=== PATIENT | female | born 1950 | race Caucasian/White ===

== ENCOUNTER 2016-10-15 12:13 | Inpatient (IN) | payer MEDICARE, MEDICAID, OTHER ==
[2016-10-15] VITALS (26 sets, daily range): BP systolic 83–168; BP diastolic 36–92; PULSE 50–82; RESP 18–43; TEMP 97.1–99.4; O2SAT 84–96
[~2016-10-15] VITALS: Ht 177.8 cm; Wt 135.6 kg
[~2016-10-15 12:13] MED LIST: ASPI81CH37 CHEW; CLIN1CAP5 PO; FURO20TA PO; LISI2.5T3 PO; METF1000 PO; TRAM50TA PO
[2016-10-15] MEDS ORDERED: methylPREDNISolone SOD SUCC 125 MG/2 ML VIAL IVP ONE (12:45)
[2016-10-15] MEDS: RESP: ALBUTEROL 2.5 MG/IPRATROPIUM 0.5 MG NEB (SCH) INH ×3 (12:45→22:34)
[2016-10-15] MEDS ORDERED: SODIUM CHLORIDE 0.9% FLUSH 5 ML FLUSH IVF PRN (12:45)
--- NOTE | 2016-10-15 12:47 | PD ---
HPI Chief Complaint: Respiratory Distress Time Seen by Provider: 12:33 Travel History International Travel<30 days: No Contact w/Intl Traveler<30days: No Traveled to known affect area: No History of Present Illness HPI The patient was seen and examined in the presence of the nurse. She complains of shortness of breath. Symptoms are severe. She is chronically short of breath with COPD and CHF with this is worse than usual. Duration worsening is 2 days. She unfortunately continues to smoke despite being oxygen dependent at 3 L around the clock. She doesn't have a concentrator for portable oxygen and so when she leaves the house she does not wear the oxygen and arrived to the emergency room without it. Saturation was 84% on room air. I have her now on 6 L nasal cannula. Not having chest pain or presyncopal symptoms. She does have a chronic cough. No fever. Leg edema is better than usual for her. Symptoms have no alleviating factors. PFSH Past Medical History Arthritis: Yes (in back) Asthma: No Autoimmune Disease: No Anxiety: Yes Depression: Yes Heart Rhythm Problems: Yes (chf, copd) Cancer: No Cardiovascular Problems: Yes High Cholesterol: No Congestive Heart Failure: Yes COPD: Yes Cerebrovascular Accident: No Diabetes: Yes Patient Takes Glucophage: Yes Diminished Hearing: Yes (deaf in right ear) GERD: Yes (once in a while) Genitourinary: No Headaches: Yes Hiatal Hernia: No Hypertension: Yes Immune Disorder: No Kidney Stones: No Musculoskeletal: Yes Neurologic: Yes Psychiatric: Yes Reproductive: No Respiratory: Yes Migraines: Yes Renal Failure: No Seizures: No Sickle Cell Disease: No Sleep Apnea: No Thyroid Disease: Yes Ulcer: No Tetanus Vaccination: < 5 Years ?: Not Menopausal: Yes Past Surgical History AICD: No Appendectomy: Yes Arteriovenous Shunt: No Cardiac Surgery: No Section: Yes Cholecystectomy: Yes Ear Surgery: No Endocrine Surgery: No Eye Surgery: No Genitourinary Surgery: No Hysterectomy: Yes Insulin Pump: No Joint Replacement: No Oral Surgery: No Pacemaker: No Thoracic Surgery: No Other Surgery: Yes Social History Alcohol Use: No Tobacco Use: Yes (09/29 PPD) Substance Use: No Allergies-Medications (Allergen,Severity, Reaction): Coded Allergies: Septra (Unverified Adverse Reaction, Severe, Yeast infection, 10/15/16) Tetracycline (Verified Adverse Reaction, Severe, Yeast infection, 10/15/16) Penicillin (Verified Adverse Reaction, Unknown, "DOESN'T WORK ON ME", 10/15) Reported Meds & Prescriptions Reported Meds & Active Scripts Active Tramadol (Tramadol HCl) 50 Mg Tab 50 Mg PO Q6H PRN Reported Aspirin Low Dose (Aspirin) 81 Mg Chew 81 Mg CHEW DAILY Lisinopril 2.5 Mg Tab Unknown Dose PO DAILY Metformin (Metformin HCl) 1,000 Mg Tab 500 PO BIDPC With meals Furosemide 20 Mg Tab Unknown Dose PO BID Review of Systems General / Constitutional: No: Fever Eyes: No: Visual changes HENT: No: Headaches Cardiovascular: Positive: Edema, No: Chest Pain or Discomfort Respiratory: Positive: Cough, Shortness of Breath, Wheezing Gastrointestinal: No: Abdominal Pain Genitourinary: No: Dysuria Musculoskeletal: Positive: Edema, No: Pain Skin: No Rash Neurologic: No: Weakness Psychiatric: No: Depression Endocrine: No: Polydipsia Hematologic/Lymphatic: No: Easy Bruising Physical Exam Narrative GENERAL: Well-nourished, well-developed patient who is short of breath in respiratory distress. SKIN: Warm and dry. HEAD: Atraumatic. Normocephalic. EYES: Pupils equal and round. No scleral icterus. No injection or drainage. ENT: No nasal bleeding or discharge. Mucous membranes pink and moist. NECK: Trachea midline. No JVD. CARDIOVASCULAR: Regular rate and rhythm. No murmur appreciated. RESPIRATORY: Positive accessory muscle use. Diffuse expiratory wheezing . Breath sounds equal bilaterally. GASTROINTESTINAL: Abdomen soft, non-tender, nondistended. Hepatic and splenic margins not palpable. MUSCULOSKELETAL: No obvious deformities. No clubbing. No cyanosis. Minor symmetric edema the feet and ankles. NEUROLOGICAL: Awake and alert. No obvious cranial nerve deficits. Motor grossly within normal limits. Normal speech. PSYCHIATRIC: Appropriate mood and affect; insight and judgment normal. Data Data Last Documented VS Vital Signs Date Time Temp Pulse Resp B/P Pulse Ox O2 Delivery O2 Flow Rate FiO2 10/15/16 13:23 82 18 140/52 91 Nasal Cannula 6 10/15/16 12:23 99.4 Orders Complete Blood Count With Diff (10/15/16 12:39) Basic Metabolic Panel (Bmp) (10/15/16 12:39) Iv Access Insert/Monitor (10/15/16 12:39) Ecg Monitoring (10/15/16 12:39) Oximetry (10/15/16 12:39) Oxygen Administration (10/15/16 12:39) Chest, Single Ap (10/15/16 12:39) Sodium Chloride 0.9% Flush (Ns Flush) (10/15/16 12:45) Methylprednisolone So Succ Inj (Solumedr (10/15/16 12:45) Albuterol-Ipratropium Neb (Duoneb Neb) (10/15/16 12:45) Furosemide Inj (Lasix Inj) (10/15/16 13:15) Admit Order (Ed Use Only) (10/15/16 13:53) Labs Laboratory Tests Test 10/15/16 12:40 White Blood Count 6.0 TH/MM3 Red Blood Count 4.66 MIL/MM3 Hemoglobin 13.2 GM/DL Hematocrit 39.1 % Mean Corpuscular Volume 83.9 FL Mean Corpuscular Hemoglobin 28.3 PG Mean Corpuscular Hemoglobin 33.7 % Concent Red Cell Distribution Width 13.0 % Platelet Count 185 TH/MM3 Mean Platelet Volume 9.4 FL Neutrophils (%) (Auto) 77.0 % Lymphocytes (%) (Auto) 11.6 % Monocytes (%) (Auto) 10.1 % Eosinophils (%) (Auto) 0.4 % Basophils (%) (Auto) 0.9 % Neutrophils # (Auto) 4.6 TH/MM3 Lymphocytes # (Auto) 0.7 TH/MM3 Monocytes # (Auto) 0.6 TH/MM3 Eosinophils # (Auto) 0.0 TH/MM3 Basophils # (Auto) 0.1 TH/MM3 CBC Comment DIFF FINAL Differential Comment Sodium Level 137 MEQ/L Potassium Level 3.6 MEQ/L Chloride Level 95 MEQ/L Carbon Dioxide Level 34.2 MEQ/L Anion Gap 8 MEQ/L Blood Urea Nitrogen 10 MG/DL Creatinine 0.92 MG/DL Estimat Glomerular Filtration 61 ML/MIN Rate Random Glucose 111 MG/DL Calcium Level 8.5 MG/DL MDM Medical Decision Making Medical Screen Exam Complete: Yes Emergency Medical Condition: Yes Medical Record Reviewed: Yes Differential Diagnosis Respiratory failure, COPD, pneumonia, CHF Narrative Course I have reviewed the patient's electronic medical record. Patient has been hospitalized for respiratory failure, both CHF and COPD Patient arrives critically ill and very dyspneic and laboring to breathe IV placed I gave her series of 3 nebulizer treatments and placed on 6 L nasal cannula oxygen I gave her IV Solu-Medrol CBC is normal Metabolic profile is normal other than mild elevation of bicarbonate, expected for this chronic COPD patient I reviewed her chest x-ray which shows findings of congestive failure and cardiomegaly I gave her 80 mg IV Lasix She is starting to diurese and feels improved at this point. No longer in critical status but still sick and requiring hospital stay. She is not stable for outpatient follow-up however. She will require telemetry hospitalization. I have placed a call to the hospitalist to discussed. I believe she can shortly wean down to her usual 3 L nasal cannula. Critical Care Narrative Aggregate critical care time was 35 minutes. Time to perform other separately billable procedures was not included in the critical care time. My time did not include minutes spent treating any other patients simultaneously or on activities that did not directly contribute to the patient's treatment. The services I provided to this patient were to treat and/or prevent clinically significant deterioration that could result in: Respiratory failure, cardiopulmonary arrest, heart arrhythmia I provided critical care services requiring my management, as noted below: Chart data review, documentation time, medication orders and management, vital sign assessments/reviewing monitor data, ordering and reviewing lab tests, ordering and interpreting/reviewing x-rays and diagnostic studies, care of the patient and discussion of the patient with the admitting physicians. Diagnosis Primary Impression: Congestive heart failure Qualified Code: I50.21 - Acute systolic congestive heart failure Additional Impression: Chronic obstructive pulmonary disease Qualified Code: J44.1 - Chronic obstructive pulmonary disease with acute exacerbation Admitting Information Admitting Physician Requests: Observation Hawk Henderson MD Oct 15, 2016 12:47
[2016-10-15 12:55] LABS: AUTOMATED NEUTROPHIL # 4.6 TH/MM3 (1.8-7.7); BASOPHIL # 0.1 TH/MM3 (0-0.2); BASOPHIL % 0.9 % (0.0-2.0); EOSINOPHIL % 0.4 % (0.0-4.0); HEMATOCRIT 39.1 % (35.0-46.0); LYMPH % 11.6 % (9.0-44.0); LYMPHOCYTE # 0.7 TH/MM3 (1.0-4.8); MEAN CELL VOLUME 83.9 FL (80.0-100.0); MEAN CORPUSCULAR HEMOGLOBIN 28.3 PG (27.0-34.0); MEAN CORPUSCULAR HGB CONC 33.7 % (32.0-36.0); MONO % 10.1 % (0.0-8.0); PLATELET COUNT 185 TH/MM3 (150-450); RED BLOOD COUNT 4.66 MIL/MM3 (4.00-5.30)
[2016-10-15 12:59] LABS: HEMO FLAGS DIFF FINAL
[2016-10-15] MEDS ORDERED: FUROSEMIDE 100 MG/10 ML VIAL IV PUSH ONE (13:15)
[2016-10-15 13:25] LABS: POTASSIUM 3.6 MEQ/L (3.5-5.1)
--- NOTE | 2016-10-15 13:25 | RADHPO ---
EXAM DATE/TIME: 10/15/2016 12:50 [facility] COMPARISON: No previous studies available for comparison. INDICATIONS : Short of breath MEDICAL HISTORY : Congestive heart failure. SURGICAL HISTORY : None. ENCOUNTER: Initial ACUITY: 2 days PAIN SCORE: 3/10 LOCATION: Bilateral chest FINDINGS: The cardiac silhouette is enlarged in transverse diameter. There is subsegmental atelectasis in the both bases. There are findings of congestive heart failure with interstitial and alveolar opacity zi aterally. No pleural effusions are identified. CONCLUSION: 1. Cardiomegaly and findings of congestive heart failure. Aidan Monzon MD on October 15, 2016 at 13:10 Board Certified Radiologist. This report was verified electronically.
[2016-10-15 13:29] LABS: BICARBONATE 34.2 MEQ/L (21.0-32.0)
[2016-10-15 14:43] LABS: BLOOD GAS BASE EXCESS 7.1 mmol/L (-2-2); BLOOD GAS CARBOXYHEMOGLOBIN 2.2 % (0-4); BLOOD GAS HCO3 31 mmol/L (22-26); BLOOD GAS METHEMOGLOBIN 1.2 % (0-2); BLOOD GAS O2 HGB SATURATION 84 % (90-100); BLOOD GAS OXYGEN CONTENT 15.5 Vol % (12.0-20.0); BLOOD GAS PCO2 43 mmHG (38-42); BLOOD GAS PO2 50 mmHG (61-120); BLOOD GAS TOTAL HGB 13.1 G/DL (12.0-16.0); TEMP CORR TO 98.6
[2016-10-15 14:53] LABS: CRITICAL VALUE YES
[2016-10-15 14:54] LABS: DRAW SITE RT RADIAL; FIO2 44 %; LITER FLOW 6 L/M; NUMBER OF ARTERIAL PUNCTURES 1; OXYGEN DEVICE NASAL CANNULA; STAT YES; ULNAR PULSE PRESENT
[2016-10-15] MEDS ORDERED: MAGNESIUM HYDROXIDE SUSP 30 ML CUP PO PRN (16:45)
[2016-10-15] MEDS ORDERED: ACETAMINOPHEN 325 MG TAB PO PRN (16:45)
[2016-10-15] MEDS ORDERED: NALOXONE HCL 0.4 MG/ML AMP IV PRN ×2 (16:45→19:00)
[2016-10-15] MEDS ORDERED: DEXTROSE 50% IN WATER 50 ML VIAL(D50) IV PUSH PRN (19:00)
[2016-10-15] MEDS ORDERED: GLUCAGON 1 MG/ML VIAL OTHER PRN (19:00)
[2016-10-15] MEDS ORDERED: CHLORHEXIDINE GLUCONATE 2 % 1 PACK (2 CLOTHS) TOP PRN (19:00)
[2016-10-15] MEDS ORDERED: LORazepam 1 MG TAB PO PRN (19:00)
[2016-10-15] MEDS ORDERED: AZITHROMYCIN 250 MG TAB PO SCH (19:00)
[2016-10-15] MEDS ORDERED: MISCELLANEOUS NURSING INFORMATION XX SCH (19:00)
--- NOTE | 2016-10-15 19:23 | HHI.HP ---
[facility] Service [facility] Primary Care Physician Serjio Larsen MD Admission Diagnosis acute exac of chronic CHF Diagnoses: Travel History International Travel<30 Days: No Contact w/Intl Traveler <30 Da: No Traveled to Known Affected Are: No History of Present Illness This is a pleasant 66-year-old female with past medical history of congestive heart failure, COPD on 3 L of oxygen continuously presents with a three-day history of increasing shortness of breath and tightness in the chest. The patient does endorse a chronic cough but states this has not changed. Denies fever or chills but states she did have sweats last night. The patient states that she has difficulty breathing more when she is lying flat and is alleviated by sitting up. She came into the ER today because the symptoms worsened. The patient does have congestive heart failure but denies any history of coronary artery disease. She last saw a assistant hall director more than 5 years ago area she does continue to smoke cigarettes. She denies increasing pedal edema. In the emergency room she was found to be hypoxic and was placed on 6 L nasal cannula. I ordered an ABG which showed hypoxia on this and she is now on a partial rebreather. The patient states that she feels somewhat better since coming into the hospital. She does not want a Justin catheter. She states she has claustrophobia and is hesitant to use BiPAP. Upon further discussion however she is agreeable. At this time she is a full code but she would of course prefer to avoid intubation. Patient was seen and examined presence of the ICU nurse as well as her daughter at bedside. Past Family Social History Allergies: Coded Allergies: Septra (Unverified Adverse Reaction, Severe, Yeast infection, 10/15/16) Tetracycline (Verified Adverse Reaction, Severe, Yeast infection, 10/15/16) Penicillin (Verified Adverse Reaction, Unknown, "DOESN'T WORK ON ME", 10/15) Physical Exam Vital Signs Vital Signs Date Time Temp Pulse Resp B/P Pulse Ox O2 Delivery O2 Flow Rate FiO2 10/15/16 18:10 93 Partial Rebreather 10.00 10/15/16 15:15 82 18 136/64 92 Non-Rebreather 10 10/15/16 13:23 82 18 140/52 91 Nasal Cannula 6 10/15/16 13:00 18 91 Nasal Cannula 6 10/15/16 13:00 91 Nasal Cannula 6 10/15/16 12:45 91 Nasal Cannula 6.00 10/15/16 12:37 22 90 Nasal Cannula 6 10/15/16 12:26 98 Non-Rebreather 12 10/15/16 12:23 99.4 76 20 145/74 84 Physical Exam GENERAL: Well-nourished, well-developed obese female patient. SKIN: Warm and dry. HEAD: Normocephalic. EYES: No scleral icterus. No injection or drainage. NECK: Supple, trachea midline. No JVD or lymphadenopathy. CARDIOVASCULAR: Regular rate and rhythm without murmurs, gallops, or rubs. RESPIRATORY: Breathing is moderately labored. Breath sounds diminished at the base and she has prolonged expiratory phase with scant end expiratory wheezing. No discernible crackles. GASTROINTESTINAL: Abdomen soft, non-tender, nondistended. EXTREMITIES: Trace pedal edema. NEUROLOGICAL: Awake, alert, and oriented x 3. Non-focal. Laboratory Laboratory Tests Test 10/15/16 10/15/16 12:40 14:34 White Blood Count 6.0 Red Blood Count 4.66 Hemoglobin 13.2 Hematocrit 39.1 Mean Corpuscular Volume 83.9 Mean Corpuscular Hemoglobin 28.3 Mean Corpuscular Hemoglobin 33.7 Concent Red Cell Distribution Width 13.0 Platelet Count 185 Mean Platelet Volume 9.4 Neutrophils (%) (Auto) 77.0 Lymphocytes (%) (Auto) 11.6 Monocytes (%) (Auto) 10.1 Eosinophils (%) (Auto) 0.4 Basophils (%) (Auto) 0.9 Neutrophils # (Auto) 4.6 Lymphocytes # (Auto) 0.7 Monocytes # (Auto) 0.6 Eosinophils # (Auto) 0.0 Basophils # (Auto) 0.1 CBC Comment DIFF FINAL Differential Comment Sodium Level 137 Potassium Level 3.6 Chloride Level 95 Carbon Dioxide Level 34.2 Anion Gap 8 Blood Urea Nitrogen 10 Creatinine 0.92 Estimat Glomerular Filtration 61 Rate Random Glucose 111 Calcium Level 8.5 B-Type Natriuretic Peptide 37 Blood Gas Puncture Site RT RADIAL Blood Gas Patient Temperature 98.6 Blood Gas HCO3 31 Blood Gas Base Excess 7.1 Blood Gas Oxygen Saturation 84 Arterial Blood pH 7.47 Arterial Blood Partial 43 Pressure CO2 Arterial Blood Partial 50 Pressure O2 Arterial Blood Oxygen Content 15.5 Arterial Blood 2.2 Carboxyhemoglobin Arterial Blood Methemoglobin 1.2 Blood Gas Hemoglobin 13.1 Oxygen Delivery Device NASAL CANNULA Blood Gas Liter Flow 6 Blood Gas Inspired Oxygen 44 Result Diagram: 10/15/16 1240 10/15/16 1240 Assessment and Plan Assessment and Plan -Acute respiratory failure secondary combination of CHF and COPD. Will treat with both with diuretics, steroids, nebulizers,. Will place the patient on BiPAP overnight. Ativan as needed for claustrophobia symptoms. Will obtain an echocardiogram. Patient at this time is refusing Justin catheter. We'll try to accurately record ins and outs although this may be difficult. We'll repeat a chest x-ray in the morning. Priyanka Valdez MD Oct 15, 2016 19:23
[2016-10-15 19:56] LABS: CREATINE KINASE 74 U/L (26-192)
[2016-10-15] MEDS: SODIUM CHLORIDE 0.9% FLUSH 5 ML FLUSH IVF SCH (20:46)
[2016-10-15] MEDS: FUROSEMIDE 40 MG/4 ML VIAL IVP SCH (20:46)
[2016-10-15] MEDS: methylPREDNISolone SOD SUCC 125 MG/2 ML VIAL IVP SCH (20:46)
[2016-10-15] MEDS: POTASSIUM CHLORIDE 20 MEQ CONTROLLED RELEASE TAB PO SCH (20:47)
[2016-10-15] MEDS: CARVEDILOL 3.125 MG TAB PO SCH (20:47)
[2016-10-15] MEDS: ENOXAPARIN SODIUM 40 MG/0.4 ML SYRINGE SQ SCH (20:52)
[2016-10-15] MEDS: INSULIN ASPART SUPPLEMENTAL SCALE SQ SCH (20:59)
[2016-10-15] MEDS: ENALAPRIL MALEATE 5 MG TAB PO SCH (21:00)
[2016-10-16] VITALS (29 sets, daily range): BP systolic 96–159; BP diastolic 48–73; PULSE 46–64; RESP 21–40; TEMP 97.5–97.8; O2SAT 87–95
[2016-10-16] MEDS: methylPREDNISolone SOD SUCC 125 MG/2 ML VIAL IVP SCH ×4 (01:20→19:56)
[2016-10-16] MEDS: SODIUM CHLORIDE 0.9% FLUSH 5 ML FLUSH IVF PRN ×2 (01:20→16:34)
[2016-10-16] MEDS: CHLORHEXIDINE GLUCONATE 2 % 1 PACK (2 CLOTHS) TOP SCH (01:50)
[2016-10-16 02:10] LABS: CREATINE KINASE 91 U/L (26-192)
[2016-10-16] MEDS: RESP: ALBUTEROL 2.5 MG/IPRATROPIUM 0.5 MG NEB (SCH) INH ×6 (04:07→23:32)
[2016-10-16 05:36] LABS: POTASSIUM 3.3 MEQ/L (3.5-5.1)
[2016-10-16 05:39] LABS: BICARBONATE 31.5 MEQ/L (21.0-32.0)
--- NOTE | 2016-10-16 06:49 | RADHPO ---
EXAM DATE/TIME: 10/16/2016 05:18 [facility] COMPARISON: CHEST SINGLE AP, October 15, 2016, 12:50. INDICATIONS : Shortness of breath MEDICAL HISTORY : Congestive heart failure. SURGICAL HISTORY : None. ENCOUNTER: Subsequent ACUITY: 3 days PAIN SCORE: 0/10 LOCATION: Bilateral chest FINDINGS: The there has been little or no change with patchy bilateral perihilar and basilar infiltrates again noted. Cardiac contours are grossly stable. CONCLUSION: No significant change. Marcos Arias MD on October 16, 2016 at 6:47 Board Certified Radiologist. This report was verified electronically.
[2016-10-16] MEDS: INSULIN ASPART SUPPLEMENTAL SCALE SQ SCH ×4 (07:31→19:55)
[2016-10-16] MEDS ORDERED: POTASSIUM CHLORIDE 20 MEQ CONTROLLED RELEASE TAB PO ONE (07:45)
--- NOTE | 2016-10-16 08:35 | HHI.PR ---
Subjective Remarks Patient seen and examined today with Dr. Valdez. Patient states that she is feeling much better. Patient did require BiPAP overnight, is now on partial nonrebreather at 10 L. Discussed with her and family at bedside extensively her condition and answered all their questions. Patient wants to go home tomorrow. Objective Vitals Vital Signs Date Time Temp Pulse Resp B/P Pulse Ox O2 Delivery O2 Flow Rate FiO2 10/16/16 08:10 93 Partial Rebreather 10.00 10/16/16 07:00 97.6 51 23 122/59 94 10/16/16 06:00 49 10/16/16 04:00 97.6 48 21 113/60 92 10/16/16 04:00 48 10/16/16 03:15 56 28 130/63 94 10/16/16 02:00 46 10/16/16 02:00 46 22 105/56 95 10/16/16 01:00 50 25 106/49 95 10/16/16 00:30 95 50 10/16/16 00:00 97.8 48 25 96/48 92 10/16/16 00:00 49 10/15/16 23:00 50 23 101/47 92 10/15/16 22:34 94 50 10/15/16 22:13 52 24 106/49 92 10/15/16 22:00 56 10/15/16 21:06 62 34 110/56 95 10/15/16 20:35 97.1 60 34 119/58 96 10/15/16 20:00 62 10/15/16 19:30 62 25 90 10/15/16 19:24 62 31 128/75 90 10/15/16 19:21 92 Partial Rebreather 10/15/16 19:15 60 35 93 10/15/16 19:10 58 30 100/92 94 10/15/16 19:09 58 35 98/36 94 10/15/16 19:06 60 34 83/48 93 10/15/16 19:00 60 29 100/43 92 10/15/16 18:45 62 32 116/57 93 10/15/16 18:30 66 21 93 10/15/16 18:15 74 43 168/83 93 10/15/16 18:10 93 Partial Rebreather 10.00 10/15/16 18:00 64 35 93 10/15/16 15:15 82 18 136/64 92 Non-Rebreather 10 10/15/16 13:23 82 18 140/52 91 Nasal Cannula 6 10/15/16 13:00 18 91 Nasal Cannula 6 10/15/16 13:00 91 Nasal Cannula 6 10/15/16 12:45 91 Nasal Cannula 6.00 10/15/16 12:37 22 90 Nasal Cannula 6 10/15/16 12:26 98 Non-Rebreather 12 10/15/16 12:23 99.4 76 20 145/74 84 I/O 10/15/16 10/15/16 10/15/16 10/16/16 10/16/16 10/16/16 07:00 15:00 23:00 07:00 15:00 23:00 Intake Total 120 ml 260 ml Output Total 550 ml 1400 ml Balance -430 ml -1140 ml Intake Oral 120 ml 260 ml Output Urine Total 550 ml 1400 ml # Voids 1 2 6 # Bowel Movements 0 2 Result Diagram: 10/15/16 1240 10/16/16 0510 Objective Remarks GENERAL: Well-developed, well-nourished, in no acute distress. alert and orientated HEENT: Head is normocephalic without any lesions or masses noted. Facial features are symmetric. Eyes: Extraocular muscles are intact. Conjunctivae were clear. NECK: Supple without any masses. Trachea midline no deviation. No JVD, CARDIAC: Regular rhythm, regular rate. S1/S2 are heard. No murmurs gallops or rubs. LUNGS: Fine wheeze noted bilaterally, no crackles, rhonchi or rales. No use of accessory muscles on inspiration or expiration. ABDOMEN: Soft, nontender. Nondistended. Bowel sounds heard in all 4 quadrants. No organomegaly or masses. Negative rebound, negative guarding EXTREMITIES: No edema, pulses are equal bilaterally. No cyanosis or clubbing NEUROLOGY: Mood and affect appear appropriate. Cranial nerves II through XII grossly intact. Moving all extremities, speech is clear Urinary Catheter: No Vascular Central Line Catheter: No A/P Assessment and Plan Acute on chronic respiratory failure: Multifactorial with chronic obstructive pulmonary disease, congestive heart failure Continue O2 supplementation maintain O2 sats greater than 92%, continue to use BiPAP as needed Continue Lasix 40 mg IV every 12 hours, monitor renal function, in's/out's closely for over diuresing Continue Solu-Medrol 60 mg every 6 hours Continue duo nebs every 4 hours Continue Zithromax Awaiting echocardiogram to evaluate cardiac function Hypokalemia Continue monitoring place as needed Diabetes Accu-Cheks with sliding scale insulin Diabetic diet Hypertension, patient did have episodes of hypotension Home medications have been continued with hold parameters DVT prevention Subcutaneous Lovenox Written by Hawk Orozco PA-C, acting as scribe for Dr. Valdez on 10/16/16 at 1005. The documentation accurately reflects the work and decisions performed face-to- face by Dr. Valdez on 10/16/16 at 1005. Hawk Orozco Oct 16, 2016 08:35
[2016-10-16] MEDS: CARVEDILOL 3.125 MG TAB PO SCH ×2 (09:02→19:57)
[2016-10-16] MEDS: ASPIRIN 81 MG CHEW TAB CHEW SCH (09:02)
[2016-10-16] MEDS: POTASSIUM CHLORIDE 20 MEQ CONTROLLED RELEASE TAB PO SCH ×2 (09:02→19:56)
[2016-10-16] MEDS: ENALAPRIL MALEATE 5 MG TAB PO SCH ×2 (09:03→19:57)
[2016-10-16] MEDS: NICOTINE 21 MG/24 HR PATCH TD SCH (09:04)
[2016-10-16] MEDS: SODIUM CHLORIDE 0.9% FLUSH 5 ML FLUSH IVF SCH ×2 (09:04→19:58)
[2016-10-16] MEDS: FUROSEMIDE 40 MG/4 ML VIAL IVP SCH ×2 (09:04→16:34)
[2016-10-16] MEDS: LEVOFLOXACIN 750 MG TAB PO SCH (11:43)
[2016-10-16] MEDS: ONDANSETRON HCL 4 MG/2 ML VIAL IVP PRN ×2 (12:49→19:56)
[2016-10-16] MEDS: ENOXAPARIN SODIUM 40 MG/0.4 ML SYRINGE SQ SCH (16:33)
--- NOTE | 2016-10-16 16:47 | EC ---
Study Study Date:10/16/2016 STUDY CONCLUSIONS SUMMARY - Procedure narrative: Image quality was poor. The study was technically limited due to poor acoustic window availability and body habitus. - Left ventricle: Extremely limited views of the left ventricle, unable to determine ejection fraction, best guess would be mild dysfunction to normal. If concern for ejection fraction, would consider other modality to measure. If LV function is below 40, please consider prescribing an ACEI or ARB or document rationale for non-use. PROCEDURE DATA STUDY STATUS: Elective. Procedure: Transthoracic echocardiography. Image quality was poor. The study was technically limited due to poor acoustic window availability and body habitus. Scanning was performed from the parasternal, apical, and subcostal acoustic windows. Study completion: The patient tolerated the procedure well. Transthoracic echocardiography. M-mode, complete 2D, complete spectral Doppler, and color Doppler. Patient status: Inpatient. CARDIAC ANATOMY LEFT VENTRICLE: Not well visualized. Extremely limited views of the left ventricle, unable to determine ejection fraction, best guess would be mild dysfunction to normal. If concern for ejection fraction, would consider other modality to measure. AORTIC VALVE: Not well visualized. Doppler: Valve area: 3.01cm^2 (Vmax). MITRAL VALVE: Not well visualized. Doppler: No significant regurgitation. Peak gradient: 4mm Hg (D). PULMONIC VALVE: Not well visualized. TRICUSPID VALVE: Poorly visualized. Doppler: No significant regurgitation. BASIC MEASUREMENTS ADULT NORMAL Left ventricle LV internal dimension, ED, chordal level, *54.8 mm 43-52 PLAX LV internal dimension, ES, chordal level, *44.5 mm 23-38 PLAX Fractional shortening, chordal level, PLAX *19 % >29 LV posterior wall thickness, ED 11.6 mm IVS/LVPW ratio, ED 0.86 <1.3 Ventricular septum Septal thickness, ED 10 mm BASIC MEASUREMENTS ADULT NORMAL Aorta Root diameter, ED 26 mm 20-37 Left atrium Anterior-posterior dimension, ES *43 mm 19-40 LA/aortic root ratio 1.65 DOPPLER MEASUREMENTS ADULT NORMAL Main pulmonary artery Pressure, S 16 mm Hg =30 Aortic valve Peak velocity, S 121 cm/s Valve area, Vmax 3.01 cm^2 Mitral valve Peak E-wave velocity 96.3 cm/s Peak A-wave velocity 95.8 cm/s Deceleration time 215 ms 150-230 Peak gradient, D 4 mm Hg Peak E/A ratio 1 Tricuspid valve Regurgitant peak velocity 122 cm/s Peak RV-RA gradient, S 6 mm Hg Maximal regurgitant velocity 122 cm/s Systemic veins Estimated CVP 10 mm Hg Right ventricle RV pressure, S 16 mm Hg <30 LEGEND: Mean values are shown as u=mean value. Asterisk (*) munoz values outside specified normal range. Prepared and signed by Chino Ray [id number]
--- NOTE | 2016-10-16 21:23 | EKG ---
Date Performed: 10/15/2016 Time Performed: 12:28:50 PTAGE: 66 years EKG: Sinus rhythm Low QRS voltages in precordial leads Borderline ECG PREVIOUS TRACING : 12/05/2014 23.26 DOCTOR: Rubio Triplett Interpretating Date/Time 10/16/2016 21:11:41
[2016-10-17] VITALS (24 sets, daily range): BP systolic 87–133; BP diastolic 42–69; PULSE 46–78; RESP 20–40; TEMP 97.5–98.6; O2SAT 88–96
[2016-10-17] MEDS: methylPREDNISolone SOD SUCC 125 MG/2 ML VIAL IVP SCH ×4 (03:14→21:11)
[2016-10-17] MEDS: CHLORHEXIDINE GLUCONATE 2 % 1 PACK (2 CLOTHS) TOP SCH (04:00)
[2016-10-17] MEDS: RESP: ALBUTEROL 2.5 MG/IPRATROPIUM 0.5 MG NEB (SCH) INH ×6 (04:14→23:45)
[2016-10-17 05:06] LABS: POTASSIUM 3.8 MEQ/L (3.5-5.1)
[2016-10-17 05:08] LABS: BICARBONATE 33.4 MEQ/L (21.0-32.0)
[2016-10-17] MEDS: INSULIN ASPART SUPPLEMENTAL SCALE SQ SCH ×4 (06:08→21:12)
[2016-10-17] MEDS: ASPIRIN 81 MG CHEW TAB CHEW SCH (08:01)
[2016-10-17] MEDS: ENALAPRIL MALEATE 5 MG TAB PO SCH ×2 (08:01→21:11)
[2016-10-17] MEDS: CARVEDILOL 3.125 MG TAB PO SCH (08:02)
[2016-10-17] MEDS: REMOVE OLD NICODERM (NICOTINE) PATCH TD SCH (08:02)
[2016-10-17] MEDS: NICOTINE 21 MG/24 HR PATCH TD SCH (08:02)
[2016-10-17] MEDS: SODIUM CHLORIDE 0.9% FLUSH 5 ML FLUSH IVF SCH ×2 (08:02→21:11)
--- NOTE | 2016-10-17 08:19 | HHI.PR ---
Subjective Remarks Patient seen and examined today with Dr. Valdez. Patient still significant oxygen dependent respiratory failure. Still requiring BiPAP last night. Still on 6 L nasal cannula with O2 saturations 90%. Objective Vitals Vital Signs Date Time Temp Pulse Resp B/P Pulse Ox O2 Delivery O2 Flow Rate FiO2 10/17/16 07:43 91 Nasal Cannula 6.00 10/17/16 06:00 46 10/17/16 06:00 46 24 107/59 95 10/17/16 05:00 50 10/17/16 05:00 50 31 133/58 90 10/17/16 04:45 91 Nasal Cannula 6.00 Humidified 10/17/16 04:30 89 Nasal Cannula 6.00 Humidified 10/17/16 04:30 97.9 48 34 124/69 89 10/17/16 04:30 48 10/17/16 03:55 93 50 10/17/16 03:00 46 10/17/16 03:00 46 22 87/45 91 10/17/16 02:00 52 28 109/60 96 10/17/16 02:00 96 Bi-Pap 50 10/17/16 02:00 52 10/17/16 01:00 94 Bi-Pap 50 10/17/16 01:00 46 20 97/42 94 10/17/16 00:21 52 40 112/54 90 10/17/16 00:19 95 50 10/17/16 00:15 90 Bi-Pap 50 10/17/16 00:00 54 10/17/16 00:00 97.6 54 34 107/57 90 10/16/16 23:00 52 10/16/16 23:00 52 34 119/73 91 10/16/16 22:00 50 40 124/54 91 10/16/16 22:00 50 10/16/16 21:40 64 37 159/55 87 10/16/16 20:00 89 Nasal Cannula 6.00 Humidified 10/16/16 20:00 60 10/16/16 20:00 60 33 111/53 89 10/16/16 19:33 97.7 60 33 114/49 91 10/16/16 19:33 91 Nasal Cannula 6.00 Humidified 10/16/16 19:00 90 Nasal Cannula 6.00 Humidified 10/16/16 19:00 56 31 104/53 90 10/16/16 18:55 92 Nasal Cannula 6.00 10/16/16 18:00 58 10/16/16 18:00 58 24 134/62 91 10/16/16 17:00 60 34 118/54 88 10/16/16 16:00 57 10/16/16 16:00 97.7 57 22 119/55 89 10/16/16 15:24 90 Nasal Cannula 6.00 10/16/16 15:00 54 32 117/55 90 10/16/16 14:00 48 28 96/51 90 10/16/16 14:00 48 10/16/16 13:00 50 24 103/52 91 10/16/16 12:00 97.5 48 31 117/65 89 10/16/16 12:00 48 29 90 10/16/16 12:00 48 10/16/16 11:17 56 26 115/61 90 10/16/16 10:00 56 26 123/62 89 10/16/16 10:00 56 10/16/16 09:15 89 Nasal Cannula 6.00 10/16/16 09:00 58 24 133/65 90 I/O 10/16/16 10/16/16 10/16/16 10/17/16 10/17/16 10/17/16 07:00 15:00 23:00 07:00 15:00 23:00 Intake Total 260 ml 720 ml 480 ml 120 ml Output Total 1400 ml 1000 ml 450 ml 100 ml Balance -1140 ml -280 ml 30 ml 20 ml Intake Oral 260 ml 720 ml 480 ml 120 ml Output Urine Total 1400 ml 1000 ml 450 ml 100 ml # Voids 6 # Bowel Movements 2 2 0 Result Diagram: 10/15/16 1240 10/17/16 0412 Objective Remarks GENERAL: Well-developed, well-nourished, in no acute distress. alert and orientated HEENT: Head is normocephalic without any lesions or masses noted. Facial features are symmetric. Eyes: Extraocular muscles are intact. Conjunctivae were clear. NECK: Supple without any masses. Trachea midline no deviation. No JVD, CARDIAC: Regular rhythm, regular rate. S1/S2 are heard. No murmurs gallops or rubs. LUNGS: Fine wheeze noted worse on the right. No crackles, rhonchi or rales. No use of accessory muscles on inspiration or expiration. ABDOMEN: Soft, nontender. Nondistended. Bowel sounds heard in all 4 quadrants. No organomegaly or masses. Negative rebound, negative guarding EXTREMITIES: No edema, pulses are equal bilaterally. No cyanosis or clubbing NEUROLOGY: Mood and affect appear appropriate. Cranial nerves II through XII grossly intact. Moving all extremities, speech is clear Urinary Catheter: No Vascular Central Line Catheter: No A/P Assessment and Plan Acute on chronic respiratory failure: Multifactorial with chronic obstructive pulmonary disease, congestive heart failure Continue O2 supplementation maintain O2 sats greater than 88%, continue to use BiPAP as needed Discontinue Lasix 40 mg IV every 12 hours secondary to acute prerenal azotemia. Monitor renal function, resume by mouth Lasix when renal functions improved Continue Solu-Medrol 60 mg every 6 hours Continue duo nebs every 4 hours Continue Zithromax Echocardiogram: Very limited exam unable to determine ejection fraction possibly mild normal left ventricular dysfunction Start incentive spirometry Acute prerenal azotemia, likely secondary to diuresing Discontinue IV Lasix Monitor renal function Avoid nephrotoxins Hypokalemia Continue monitoring place as needed Diabetes Accu-Cheks with sliding scale insulin Diabetic diet Hypertension, patient did have episodes of hypotension Home medications have been continued with hold parameters DVT prevention Subcutaneous Lovenox Written by Hawk Orozco PA-C, acting as scribe for Dr. Valdez on 10/17/16 at 16:30. The documentation accurately reflects the work and decisions performed face-to- face by Dr. Valdez on 10/17/16 at 16:30. Hawk Orozco Oct 17, 2016 08:19 Priyanka Valdez MD Oct 18, 2016 11:56
[2016-10-17] MEDS: LEVOFLOXACIN 750 MG TAB PO SCH (11:24)
[2016-10-17] MEDS: SODIUM CHLORIDE 0.9% FLUSH 5 ML FLUSH IVF PRN (13:43)
[2016-10-17] MEDS: ENOXAPARIN SODIUM 40 MG/0.4 ML SYRINGE SQ SCH (16:10)
[2016-10-18] VITALS (13 sets, daily range): BP systolic 115–162; BP diastolic 52–76; PULSE 46–60; RESP 21–50; TEMP 97.4–98.1; O2SAT 89–92
[2016-10-18] MEDS: methylPREDNISolone SOD SUCC 125 MG/2 ML VIAL IVP SCH ×3 (02:36→14:38)
[2016-10-18] MEDS: CHLORHEXIDINE GLUCONATE 2 % 1 PACK (2 CLOTHS) TOP SCH (02:37)
[2016-10-18] MEDS: RESP: ALBUTEROL 2.5 MG/IPRATROPIUM 0.5 MG NEB (SCH) INH ×5 (03:56→20:17)
[2016-10-18 06:33] LABS: POTASSIUM 3.9 MEQ/L (3.5-5.1)
[2016-10-18 06:37] LABS: BICARBONATE 32.3 MEQ/L (21.0-32.0)
[2016-10-18 06:55] LABS: AUTOMATED NEUTROPHIL # 8.6 TH/MM3 (1.8-7.7); BASOPHIL % 0.2 % (0.0-2.0); EOSINOPHIL % 0.1 % (0.0-4.0); HEMATOCRIT 40.5 % (35.0-46.0); LYMPH % 7.6 % (9.0-44.0); LYMPHOCYTE # 0.8 TH/MM3 (1.0-4.8); MEAN CELL VOLUME 86.8 FL (80.0-100.0); MEAN CORPUSCULAR HEMOGLOBIN 29.5 PG (27.0-34.0); MONO % 5.4 % (0.0-8.0); NEUT % 86.7 % (16.0-70.0); PLATELET COUNT 203 TH/MM3 (150-450); RED BLOOD COUNT 4.67 MIL/MM3 (4.00-5.30); RED CELL DISTRIBUTION WIDTH 13.5 % (11.6-17.2); WHITE BLOOD COUNT 9.9 TH/MM3 (4.0-11.0)
[2016-10-18 06:59] LABS: HEMO FLAGS DIFF FINAL
[2016-10-18] MEDS: INSULIN ASPART SUPPLEMENTAL SCALE SQ SCH ×4 (07:11→19:57)
[2016-10-18] MEDS: ENALAPRIL MALEATE 5 MG TAB PO SCH ×2 (08:25→19:54)
[2016-10-18] MEDS: SODIUM CHLORIDE 0.9% FLUSH 5 ML FLUSH IVF SCH ×2 (08:25→19:55)
[2016-10-18] MEDS: ASPIRIN 81 MG CHEW TAB CHEW SCH (08:25)
[2016-10-18] MEDS: REMOVE OLD NICODERM (NICOTINE) PATCH TD SCH (08:25)
[2016-10-18] MEDS: NICOTINE 21 MG/24 HR PATCH TD SCH (08:25)
--- NOTE | 2016-10-18 09:41 | HHI.PR ---
Subjective Remarks Patient seen and examined today with Dr. Valdez. Patient did not require BiPAP overnight. She is down to 5 L nasal cannula. Patient states that she is breathing much better. Objective Vitals Vital Signs Date Time Temp Pulse Resp B/P Pulse Ox O2 Delivery O2 Flow Rate FiO2 10/18/16 07:59 90 Nasal Cannula 5.00 10/18/16 04:00 97.4 48 40 125/70 91 10/18/16 04:00 48 10/18/16 04:00 92 Nasal Cannula 5.00 10/18/16 00:00 98.1 56 27 117/52 89 10/18/16 00:00 91 Nasal Cannula 5.00 10/17/16 20:00 97.5 78 30 129/57 92 10/17/16 20:00 78 10/17/16 20:00 89 Nasal Cannula 5.00 10/17/16 19:20 92 Nasal Cannula 5.00 10/17/16 17:00 54 28 114/59 89 10/17/16 16:00 56 10/17/16 16:00 98.3 56 34 110/48 91 10/17/16 16:00 91 Nasal Cannula 5.00 10/17/16 15:00 60 30 103/68 90 10/17/16 14:00 70 10/17/16 14:00 70 34 117/56 93 10/17/16 13:00 60 35 115/69 90 10/17/16 12:00 58 10/17/16 12:00 85 Nasal Cannula 5.00 10/17/16 12:00 98.6 58 23 102/50 91 10/17/16 11:00 60 34 131/66 88 10/17/16 10:00 56 10/17/16 10:00 56 31 111/60 92 I/O 10/17/16 10/17/16 10/17/16 10/18/16 10/18/16 10/18/16 07:00 15:00 23:00 07:00 15:00 23:00 Intake Total 120 ml 550 ml 480 ml 360 ml Output Total 100 ml 400 ml 400 ml 1600 ml Balance 20 ml 150 ml 80 ml -1240 ml Intake Oral 120 ml 550 ml 480 ml 360 ml Output Urine Total 100 ml 400 ml 400 ml 1600 ml # Bowel Movements 0 0 0 Result Diagram: 10/18/16 0600 10/18/16 0600 Objective Remarks GENERAL: Well-developed, well-nourished, in no acute distress. alert and orientated HEENT: Head is normocephalic without any lesions or masses noted. Facial features are symmetric. Eyes: Extraocular muscles are intact. Conjunctivae were clear. NECK: Supple without any masses. Trachea midline no deviation. No JVD, CARDIAC: Regular rhythm, regular rate. S1/S2 are heard. No murmurs gallops or rubs. LUNGS: Patient with decreased air flow and lung expansion. Fine wheeze noted bilaterally. No crackles, rhonchi or rales. No use of accessory muscles on inspiration or expiration. ABDOMEN: Soft, nontender. Nondistended. Bowel sounds heard in all 4 quadrants. No organomegaly or masses. Negative rebound, negative guarding EXTREMITIES: No edema, pulses are equal bilaterally. No cyanosis or clubbing NEUROLOGY: Mood and affect appear appropriate. Cranial nerves II through XII grossly intact. Moving all extremities, speech is clear Urinary Catheter: No Vascular Central Line Catheter: No A/P Assessment and Plan Acute on chronic respiratory failure: Multifactorial with chronic obstructive pulmonary disease, congestive heart failure Continue O2 supplementation maintain O2 sats greater than 88% Resume home Lasix 20 mg twice daily Continue Solu-Medrol 60 mg every 6 hours Continue duo nebs every 4 hours Continue Zithromax Echocardiogram: Very limited exam unable to determine ejection fraction possibly mild normal left ventricular dysfunction Continue incentive spirometry, notify patient to use every hour Acute prerenal azotemia, likely secondary to diuresing, improving Discontinued IV Lasix Monitor renal function Avoid nephrotoxins Hypokalemia Continue monitoring place as needed Diabetes Accu-Cheks with sliding scale insulin Diabetic diet Hypertension, patient did have episodes of hypotension Home medications have been continued with hold parameters DVT prevention Subcutaneous Lovenox Written by Hawk Orozco PA-C, acting as scribe for Dr. Valdez on 10/18/16 at 1515. The documentation accurately reflects the work and decisions performed face-to- face by Dr. Valdez on 10/18/16 at 1515. Discharge Planning Discharge planning 24-48 hours Hawk Orozco Oct 18, 2016 09:41
--- NOTE | 2016-10-18 09:42 | HHI.FF ---
Face to Face Verification Diagnosis: (1) Chronic obstructive pulmonary disease (2) Congestive heart failure (3) Shortness of breath dyspnea Physical Therapy Order: Evaluate and Treat, Improve ambulation, Strength and gait training Home Health Nursing Order: Medical education Signs/symptoms of disease process Oxygen administration education Nursing assessment with vital signs I have seen patient Sowmya Scott on 10/18/16. My clinical findings support the need for the requested home health care services because: Patient has SOB Deconditioned w/ increased weakness I certify that my clinical findings support that this patient is homebound because: Hx COPD- exertion dyspnea/weakness Hawk Orozco Oct 18, 2016 09:42
[2016-10-18] MEDS: LEVOFLOXACIN 750 MG TAB PO SCH (11:21)
[2016-10-18] MEDS: PILL SPLITTER OTHER PRN (11:21)
[2016-10-18] MEDS: SODIUM CHLORIDE 0.9% FLUSH 5 ML FLUSH IVF PRN (14:39)
[2016-10-18] MEDS ORDERED: LISI10TA3 PO (15:34)
[2016-10-18] MEDS ORDERED: METF500 PO (15:34)
[2016-10-18] MEDS ORDERED: FURO40TA PO (15:34)
[2016-10-18] MEDS: FUROSEMIDE 20 MG TAB PO SCH (16:49)
[2016-10-18] MEDS: ENOXAPARIN SODIUM 40 MG/0.4 ML SYRINGE SQ SCH (16:49)
--- NOTE | 2016-10-18 17:13 | RADHPO ---
EXAM DATE/TIME: 10/18/2016 17:10 [facility] COMPARISON: CHEST SINGLE AP, October 16, 2016, 5:18. INDICATIONS : CHF. cough, short of breath MEDICAL HISTORY : Congestive heart failure. SURGICAL HISTORY : None. ENCOUNTER: Subsequent ACUITY: 4 - 6 days PAIN SCORE: 0/10 LOCATION: Bilateral chest FINDINGS: The heart size is mildly enlarged. There is increased density at the lateral left lower lung. There is some minimal hazy density identified at the bases. CONCLUSION: Focal area of suspected consolidation or atelectasis at the lateral left lower lobe. Marcos Robin MD on October 18, 2016 at 17:05 Board Certified Radiologist. This report was verified electronically.
[2016-10-18] MEDS: predniSONE 20 MG TAB PO SCH (19:54)
[2016-10-19] VITALS (12 sets, daily range): BP systolic 111–142; BP diastolic 60–66; PULSE 44–60; RESP 18–29; TEMP 97.6–99; O2SAT 91–94
[2016-10-19] MEDS: RESP: ALBUTEROL 2.5 MG/IPRATROPIUM 0.5 MG NEB (SCH) INH ×4 (00:13→11:00)
[2016-10-19] MEDS: CHLORHEXIDINE GLUCONATE 2 % 1 PACK (2 CLOTHS) TOP SCH (03:30)
[2016-10-19] MEDS: INSULIN ASPART SUPPLEMENTAL SCALE SQ SCH ×2 (06:15→11:00)
[2016-10-19 06:27] LABS: POTASSIUM 3.7 MEQ/L (3.5-5.1)
[2016-10-19 06:32] LABS: BICARBONATE 30.5 MEQ/L (21.0-32.0)
[2016-10-19] MEDS: REMOVE OLD NICODERM (NICOTINE) PATCH TD SCH (09:00)
[2016-10-19] MEDS: FUROSEMIDE 20 MG TAB PO SCH (09:02)
[2016-10-19] MEDS: SODIUM CHLORIDE 0.9% FLUSH 5 ML FLUSH IVF SCH (09:02)
[2016-10-19] MEDS: PILL SPLITTER OTHER PRN (09:03)
[2016-10-19] MEDS: ASPIRIN 81 MG CHEW TAB CHEW SCH (09:03)
[2016-10-19] MEDS: predniSONE 20 MG TAB PO SCH (09:03)
[2016-10-19] MEDS: ENALAPRIL MALEATE 5 MG TAB PO SCH (09:04)
[2016-10-19] MEDS: NICOTINE 21 MG/24 HR PATCH TD SCH (09:04)
[2016-10-19] MEDS: LEVOFLOXACIN 750 MG TAB PO SCH (11:22)
--- NOTE | 2016-10-19 13:12 | HHI.PR ---
Objective Vitals Vital Signs Date Time Temp Pulse Resp B/P Pulse Ox O2 Delivery O2 Flow Rate FiO2 10/19/16 12:50 98.7 10/19/16 12:00 92 Nasal Cannula 4.00 10/19/16 10:00 52 29 94 10/19/16 09:00 54 28 92 10/19/16 08:30 93 Nasal Cannula 5.00 10/19/16 08:00 45 10/19/16 08:00 99.0 48 29 92 10/19/16 08:00 93 Nasal Cannula 4.00 10/19/16 07:42 54 23 133/66 93 10/19/16 07:00 44 22 92 10/19/16 04:00 93 Nasal Cannula 5.00 10/19/16 04:00 97.6 60 26 142/60 93 10/19/16 03:00 52 26 92 10/19/16 02:00 48 27 91 10/19/16 01:00 50 18 92 10/19/16 00:00 97.6 54 29 111/62 92 10/19/16 00:00 50 25 92 10/19/16 00:00 91 Nasal Cannula 5.00 10/18/16 23:00 48 50 91 10/18/16 22:00 52 28 92 10/18/16 21:00 58 35 92 10/18/16 20:18 91 Nasal Cannula 5.00 10/18/16 20:00 92 Nasal Cannula 5.00 10/18/16 20:00 97.6 56 38 148/63 91 10/18/16 20:00 55 10/18/16 19:00 60 29 162/61 91 10/18/16 17:00 50 23 91 10/18/16 16:27 98.1 58 30 118/64 91 10/18/16 16:00 92 Nasal Cannula 5.00 I/O 10/18/16 10/18/16 10/18/16 10/19/16 10/19/16 10/19/16 07:00 15:00 23:00 07:00 15:00 23:00 Intake Total 360 ml 520 ml 480 ml 840 ml Output Total 1600 ml 600 ml 1400 ml 1800 ml Balance -1240 ml -80 ml -920 ml -960 ml Intake Oral 360 ml 520 ml 480 ml 840 ml Output Urine Total 1600 ml 600 ml 1400 ml 1800 ml # Bowel Movements 0 0 0 0 Result Diagram: 10/18/16 0600 10/19/16 0545 Objective Remarks GENERAL: Well-developed, well-nourished, in no acute distress. alert and orientated HEENT: Head is normocephalic without any lesions or masses noted. Facial features are symmetric. Eyes: Extraocular muscles are intact. Conjunctivae were clear. NECK: Supple without any masses. Trachea midline no deviation. No JVD, CARDIAC: Regular rhythm, regular rate. S1/S2 are heard. No murmurs gallops or rubs. LUNGS: Patient with decreased air flow and lung expansion. Fine wheeze noted bilaterally. No crackles, rhonchi or rales. No use of accessory muscles on inspiration or expiration. ABDOMEN: Soft, nontender. Nondistended. Bowel sounds heard in all 4 quadrants. No organomegaly or masses. Negative rebound, negative guarding EXTREMITIES: No edema, pulses are equal bilaterally. No cyanosis or clubbing NEUROLOGY: Mood and affect appear appropriate. Cranial nerves II through XII grossly intact. Moving all extremities, speech is clear A/P Assessment and Plan Acute on chronic respiratory failure: Multifactorial with chronic obstructive pulmonary disease, congestive heart failure Continue O2 supplementation maintain O2 sats greater than 88% Resume home Lasix 20 mg twice daily Continue Solu-Medrol 60 mg every 6 hours Continue duo nebs every 4 hours Continue Zithromax Echocardiogram: Very limited exam unable to determine ejection fraction possibly mild normal left ventricular dysfunction Continue incentive spirometry, notify patient to use every hour Acute prerenal azotemia, likely secondary to diuresing, improving Discontinued IV Lasix Monitor renal function Avoid nephrotoxins Hypokalemia Continue monitoring place as needed Diabetes Accu-Cheks with sliding scale insulin Diabetic diet Hypertension, patient did have episodes of hypotension Home medications have been continued with hold parameters DVT prevention Subcutaneous Lovenox Written by Hawk Orozco PA-C, acting as scribe for Dr. Valdez on 10/19/16 at 1315. The documentation accurately reflects the work and decisions performed face-to- face by Dr. Valdez on 10/19/16 at 1315. Discharge Planning Discharge planning 24-48 hours Hawk Orozco Oct 19, 2016 13:12 Priyanka Valdez MD Oct 19, 2016 17:37
[2016-10-19] MEDS ORDERED: IPRASOL INH (13:17)
[2016-10-19] MEDS ORDERED: FURO20TA PO (13:17)
[2016-10-19] MEDS ORDERED: PRED5PAK2 PO (13:17)
[2016-10-19] MEDS ORDERED: LEVA750T PO (13:17)
[2016-10-19] MEDS ORDERED: OXYGENTANK NAS.CANULA (14:31)
--- NOTE | 2016-10-19 17:37 | HHI.DS ---
Discharge Summary Admission Date Oct 15, 2016 at 16:48 Discharge Date: Oct 19, 2016 Admitting Diagnosis acute exac of chronic CHF (1) Chronic obstructive pulmonary disease ICD Code: J44.9 (2) Congestive heart failure ICD Code: I50.9 (3) Shortness of breath dyspnea ICD Code: R06.02 (4) Acute on chronic respiratory failure with hypoxemia ICD Code: J96.21 (5) JUD (acute kidney injury) ICD Code: N17.9 Procedures None Brief History - From Admission This is a pleasant 66-year-old female with past medical history of congestive heart failure, COPD on 3 L of oxygen continuously presents with a three-day history of increasing shortness of breath and tightness in the chest. The patient does endorse a chronic cough but states this has not changed. Denies fever or chills but states she did have sweats last night. The patient states that she has difficulty breathing more when she is lying flat and is alleviated by sitting up. She came into the ER today because the symptoms worsened. The patient does have congestive heart failure but denies any history of coronary artery disease. She last saw a medicare sales executive more than 5 years ago area she does continue to smoke cigarettes. She denies increasing pedal edema. In the emergency room she was found to be hypoxic and was placed on 6 L nasal cannula. I ordered an ABG which showed hypoxia on this and she is now on a partial rebreather. The patient states that she feels somewhat better since coming into the hospital. She does not want a Justin catheter. She states she has claustrophobia and is hesitant to use BiPAP. Upon further discussion however she is agreeable. At this time she is a full code but she would of course prefer to avoid intubation. Patient was seen and examined presence of the ICU nurse as well as her daughter at bedside. CBC/BMP: 10/18/16 0600 10/19/16 0545 Significant Findings Laboratory Tests Test 10/17/16 10/18/16 10/19/16 04:12 06:00 05:45 Carbon Dioxide Level 33.4 MEQ/L 32.3 MEQ/L (21.0-32.0) (21.0-32.0) Blood Urea Nitrogen 30 MG/DL (7-18) 26 MG/DL (7-18) 25 MG/DL (7-18) Creatinine 1.20 MG/DL (0.50-1.00) Estimat Glomerular Filtration 45 ML/MIN (>89) 56 ML/MIN (>89) 56 ML/MIN (>89) Rate Random Glucose 159 MG/DL 161 MG/DL 180 MG/DL (74-106) (74-106) (74-106) Calcium Level 8.4 MG/DL 8.2 MG/DL 8.2 MG/DL (8.5-10.1) (8.5-10.1) (8.5-10.1) Neutrophils (%) (Auto) 86.7 % (16.0-70.0) Lymphocytes (%) (Auto) 7.6 % (9.0-44.0) Neutrophils # (Auto) 8.6 TH/MM3 (1.8-7.7) Lymphocytes # (Auto) 0.8 TH/MM3 (1.0-4.8) Magnesium Level 3.0 MG/DL (1.5-2.5) Imaging Last Impressions Chest X-Ray 10/18/16 0000 Signed Impressions: Service Date/Time: Tuesday, October 18, 2016 17:10 - CONCLUSION: Focal area of suspected consolidation or atelectasis at the lateral left lower lobe. Marcos Robin MD PE at Discharge GENERAL: Well-developed, well-nourished, in no acute distress. alert and orientated HEENT: Head is normocephalic without any lesions or masses noted. Facial features are symmetric. Eyes: Extraocular muscles are intact. Conjunctivae were clear. NECK: Supple without any masses. Trachea midline no deviation. No JVD, CARDIAC: Regular rhythm, regular rate. S1/S2 are heard. No murmurs gallops or rubs. LUNGS: Patient with decreased air flow and lung expansion. Fine wheeze noted bilaterally. No crackles, rhonchi or rales. No use of accessory muscles on inspiration or expiration. ABDOMEN: Soft, nontender. Nondistended. Bowel sounds heard in all 4 quadrants. No organomegaly or masses. Negative rebound, negative guarding EXTREMITIES: No edema, pulses are equal bilaterally. No cyanosis or clubbing NEUROLOGY: Mood and affect appear appropriate. Cranial nerves II through XII grossly intact. Moving all extremities, speech is clear Hospital Course The patient was admitted and treated for CHF, COPD exacerbation. Initialy was on bipap and tolerated well. O2 requirements were gradually weaned. 2d echocardiogram was a poor study - EF was estimated to be normal or slightly below normal. Patient was ambulating well on 3 liters of O2. She will be discharged home today with [facility]. I did discuss her hospital care and DC plans with her PCP Dr. Larsen. Outpatient pulmonology and cardiology referral are recommended. Pt Condition on Discharge: Stable Discharge Disposition: Discharge Home Discharge Time: > 30 minutes Discharge Instructions DIET: Follow Instructions for: Heart Healthy Diet, Diabetic Diet Activities you can perform: Regular-No Restrictions New Medications: Oxygen tank (Oxygen tank) 1 Ea Tank 2 LITER VIJI[employer] CONTINUOUS Oxygen Concentrator Portable Gaseous 2 L/min via Nasal Cannula Continuous For 99 months HYPOXEMIA PREVENTION #3 CYLINDER Prednisone (48) 5 mg tab Dose Pack (Prednisone (48) 5 mg tab Dose Pack) 5 Mg Dspk 5 MG PO DIRECTED Inflammation #1 Ref 0 DSPK Furosemide (Furosemide) 20 Mg Tab 20 MG PO BID@09,18 CHF #60 TAB Ipratropium-Albuterol Neb (Duoneb) 0.5-2.5 Mg/3 Ml Neb 1 AMPULE INH Q4HR NEB COPD #90 ML Levofloxacin (Levaquin) 750 Mg Tab 750 MG PO DAILY@11 Pneumonia #5 TAB Continued Medications: Aspirin (Aspirin Low Dose) 81 Mg Chew 81 MG CHEW HS Ref 0 TAB Lisinopril (Lisinopril) 10 Mg Tab 10 MG PO DAILY #30 Ref 0 TAB Metformin (Glucophage) 500 Mg Tab 250 MG PO BIDPC With meals Blood Sugar Management #60 Ref 0 TAB Tramadol (Tramadol) 50 Mg Tab 50 MG PO Q6H PRN PAIN GREATER THAN 6 #15 Ref 0 TAB Discontinued Medications: Furosemide (Furosemide) 40 Mg Tab 40 MG PO BID #60 Ref 0 TAB Priyanka Valdez MD Oct 19, 2016 17:37
== END 2016-10-19 15:00 | disposition home health service (06) | DRG 189 ==
LOC: PHED 12:13 → PHEDA 13:55 → OBSVTOIN 16:48 → PHICU 17:34
PROVIDERS: ADMIT Family Medicine; ATTEND Family Medicine
PROC: 5A09457 Assistance with Respiratory Ventilation, 24-96 Consecutive Hours, Continuous Positive Airway Pressure (ICD-10-PCS; principal; 2016-10-15)
DX: J96.21 Acute and chronic respiratory failure with hypoxia (principal); N17.9 Acute kidney failure, unspecified; I95.9 Hypotension, unspecified; J44.9 Chronic obstructive pulmonary disease, unspecified; Z99.81 Dependence on supplemental oxygen; I50.9 Heart failure, unspecified; Z68.41 Body mass index [BMI] 40.0-44.9, adult; E66.9 Obesity, unspecified; R79.89 Other specified abnormal findings of blood chemistry; E87.6 Hypokalemia; E11.9 Type 2 diabetes mellitus without complications; Z79.84 Long term (current) use of oral hypoglycemic drugs; F17.210 Nicotine dependence, cigarettes, uncomplicated; I10 Essential (primary) hypertension; F40.240 Claustrophobia; H91.91 Unspecified hearing loss, right ear; Z79.82 Long term (current) use of aspirin
CPT/HCPCS: 36600; 71010; 80048; 82550; 82805; 82948; 83735; 83880; 84484; 85025; 87641; 93005; 93306; 94002; 94003; 94150; 94620; 94640; 94664; 96374; 96375; J1650; J1815; J1940; J2405; J2930; J7512

== ENCOUNTER → 2016-11-07 | Outpatient (CLI) | payer MEDICARE, MEDICAID ==
[~2016-11-07] MED LIST changes: -CLIN1CAP5 PO; +IPRASOL INH; +LEVA750T PO; +LISI10TA3 PO; -LISI2.5T3 PO; -METF1000 PO; +METF500 PO; +OXYGENTANK NAS.CANULA; +PRED5PAK2 PO
[2016-11-07 10:53] LABS: BLOOD GAS BASE EXCESS -0.8 mmol/L (-2-2); BLOOD GAS CARBOXYHEMOGLOBIN 3.9 % (0-4); BLOOD GAS HCO3 23 mmol/L (22-26); BLOOD GAS O2 HGB SATURATION 91 % (90-100); BLOOD GAS OXYGEN CONTENT 17.4 Vol % (12.0-20.0); BLOOD GAS PCO2 35 mmHg (38-42); BLOOD GAS PO2 73 mmHg (61-120); BLOOD GAS TOTAL HGB 13.5 G/DL (12.0-16.0); TEMP CORR TO 98.6
[2016-11-07 10:54] LABS: CRITICAL VALUE NO; DRAW SITE RT RADIAL; FIO2 21 %; NUMBER OF ARTERIAL PUNCTURES 1; STAT NO; ULNAR PULSE PRESENT
--- NOTE | 2016-11-11 09:37 | RSPPFT ---
DATE OF PROCEDURE: 11/07/16 COMMENTS: VOLUMES DYNAMIC: FVC and FEV1 mildly reduced. STATIC: VTG, RV mildly increased; TLC normal. FLOWS: FEV1% normal; FEF 25-75 moderately reduced. DIFFUSION; Normal. FLOW VOLUME LOOP: Terminal airflow obstruction. IMPRESSION: Mild obstructive ventilatory defect with normal diffusion and mild hyperinflation. Airways resistance is mildly increased. There is no significant improvement post-bronchodilator.
== END ==
LOC: HRSP 09:50
PROVIDERS: ATTEND Internal Medicine
DX: J44.9 Chronic obstructive pulmonary disease, unspecified (principal)
CPT/HCPCS: 36600; 82805; 94060; 94620; 94726; 94729